=== PATIENT | male | born 1965 | race Caucasian/White ===

== ENCOUNTER 2020-03-29 15:50 | Emergency (ER) | payer OTHER ==
[2020-03-29 16:11] VITALS: BP 129/67; PULSE 87; TEMP 98.2; BMI 31.1
--- NOTE | 2020-03-29 16:26 | PDOC ---
Attending Attestation - Resident Resident Name: Lev Morfin - ED Attending Attestation I have performed the following: I have examined & evaluated the patient, The case was reviewed & discussed with the resident, I agree w/resident's findings & plan, Exceptions are as noted - HPI HPI: 54 yo M hx DM, panic attacks, depression, EtOh abuse, prior seizures presents with EtOH intox, requesting detox. He states he drank 12 beers yesterday, suspected he had a seizure when he woke up covered in vomit in the middle of the night. Drank multiple beers prior to arrival in ED, as well. C/o epigastric pain. - Physicial Exam PE: GENERAL: Awake, alert, and fully oriented, in no acute distress. +AOB HEAD: No signs of trauma EYES: PERRLA, EOMI, sclera anicteric, conjunctiva clear ENT: Auricles normal inspection, hearing grossly normal, nares patent, oropharynx clear without exudates. Moist mucosa. +Tongue fasciculations NECK: Normal ROM, supple, no lymphadenopathy, JVD, or masses LUNGS: Breath sounds equal, clear to auscultation bilaterally. No wheezes, and no crackles HEART: Regular rate and rhythm, normal S1 and S2, no murmurs, rubs or gallops ABDOMEN: Soft, nontender, normoactive bowel sounds. No guarding, no rebound. No masses EXTREMITIES: Normal range of motion, no edema. No clubbing or cyanosis. No cords, erythema, or tenderness. +Fine tremors to the hands B/L NEUROLOGICAL: Cranial nerves II through XII grossly intact. Normal speech. Motor and sensation intact SKIN: Warm, dry, normal turgor, no rashes or lesions noted. - Medical Decision Making Pt with signs of withdrawal on evaluation, despite still being intoxicated. D/w patient, he would like to go to detox. Will contact [facility] to see if space is available. Discharge - Discharge Information Problems reviewed: Yes Clinical Impression/Diagnosis: Alcohol intoxication Qualifiers: Complication of substance-induced condition: uncomplicated Qualified Code(s): F10.920 - Alcohol use, unspecified with intoxication, uncomplicated Condition: Stable Disposition: HOME - Follow up/Referral - Patient Discharge Instructions Patient Printed Discharge Instructions: DI for Alcohol Abuse - Post Discharge Activity
[2020-03-29] MEDS ORDERED: FAMOTIDINE 20 MG/50 ML IVPB 20 MG/50 ML MG IVPB ONE ×2 (16:46→17:05)
[2020-03-29] MEDS ORDERED: MAG HYDROX/AL HYDROX/SIMETH 30 ML UNIT-DOSE CUP PO ONE (16:46)
--- NOTE | 2020-03-29 16:52 | PDOC ---
History of Present Illness - General Chief Complaint: Alcohol intoxication Stated Complaint: INTOX Time Seen by Provider: 03/29/20 16:18 History Source: Patient Exam Limitations: No Limitations - History of Present Illness Initial Comments: 03/29/20 16:47 HPI: 54 yo M pmh DM, panic attacks, depression, ETOH use disorder previously c/b seizures presenting with ETOH intoxication requesting detox. Patient endorses drinking 12 beers yesterday, waking up between 2-3AM covered in vomit, assumed he must have had a seizure. He then drank 12 more beers before presenting to the ED requesting detox. He states that he has run out of clonazepam and his psychiatrist is out of the office. He then says he feels like he is about to have a panic attack here in the department - verbally deescalated with engagement in neuro exam. On [facility] database review, received 30 day supply of clonazepam on 03/17/2020 (0.5 mg) he reports that he takes 6 mg daily. Alert and oriented x3, denies any symptoms other than epigastric pain. Past History - Travel History Traveled outside of the country in the last 30 days: No Close contact w/someone who was outside of country & ill: No - Medical History Allergies/Adverse Reactions: Allergies Allergy/AdvReac Type Severity Reaction Status Date / Time No Known Allergies Allergy Verified 03/29/20 15:55 COPD: No Diabetes: Yes (type 2) - Psycho-Social/Smoking History Smoking History: Never smoked Have you smoked in the past 12 months: No Information on smoking cessation initiated: No - Substance Abuse Hx (Audit-C & DAST Scrn) How often the patient has a drink containing alcohol: 4 0r more times/wk Number of drinks the patient has on a typical day: 10 or more How often the patient has six or more drinks on one occasion: Daily or almost daily Score: In Men: 4 or > Positive; In Women: 3 or > Positive: 12 Screen Result (Pos requires Nsg. Audit-10AR): Positive In the last yr the pt used illegal drug/Rx for NonMed reason: No Score: Yes response is considered Positive: 0 Screen Result (Positive result requires Nsg. DAST-10): Negative Review of Systems - Review of Systems Able to Perform ROS?: Yes Is the patient limited Yakut proficient: Yes Constitutional: No: Chills, Diaphoresis, Fever, Weakness HEENTM: No: Recent change in vision, Nose Pain, Throat Pain Respiratory: No: Cough, Shortness of Breath, Wheezing Cardiac (ROS): No: Chest Pain, Edema, Irregular Heart Rate, Lightheadedness, Palpitations, Syncope, Chest Tightness ABD/GI: Yes: Vomiting (overnight, not nauseous or vomiting at present.). No: Constipated, Diarrhea, Nausea : No: Burning, Dysuria, Frequency Musculoskeletal: No: Muscle Pain, Muscle Weakness, Neck Pain Integumentary: No: Bruising, Pruritus, Rash Neurological: No: Headache, Numbness, Tingling, Weakness Psychiatric: Yes: Anxiety. No: Depression, Change in Appetite Endocrine: No: Increased Thirst, Increased Urine, Change in Weight Hematologic/Lymphatic: No: Anemia, Blood Clots, Easy Bleeding All Other Systems: Reviewed and Negative *Physical Exam - Vital Signs Last Vital Signs Temp Pulse Resp BP Pulse Ox 98.2 F 87 18 129/67 93 L 03/29/20 15:55 03/29/20 15:55 03/29/20 15:55 03/29/20 15:55 03/29/20 15:55 - Physical Exam 03/29/20 16:54 Vitals reviewed, AFVSS GEN: Well appearing, appears stated age, NAD, comfortable, smells of ETOH, keeping eyes closed. AAOx3. HEENT: NCAT, EOMI, PERRL. Sclera anicteric, non-injected. No facial asymmetry. Moist mucous membranes. Normal voice. Trachea midline. CV: RRR, S1/S2, no murmurs / rubs / gallops appreciated. LUNG: CTABL, normal work of breathing. No wheezes, rales, rhonchi. No cough. Speaking full sentences. GI: Soft, NTND, +BS, no guarding, no rebound. No masses. EXTREMITIES: 2+ distal pulses. No clubbing / cyanosis / edema. No gross deformity in any extremity. SKIN: Warm, dry, no rashes appreciated, non-jaundiced. PSYCH: Mood is anxious and affect labile. Cooperative and appropriate. NEURO: CN grossly intact. Moving all extremities well. Normal strength and sensation to light touch grossly. ED Treatment Course - LABORATORY CBC & Chemistry Diagram: 03/29/20 16:43 03/29/20 16:43 Medical Decision Making - Medical Decision Making 03/29/20 16:53 54 yo M pmh DM, panic attacks, depression, ETOH use disorder previously c/b seizures presenting with ETOH intoxication requesting detox. History notable for requesting clonazepam, recent rx filled per online records, recent ETOH use. Exam notable for stable vitals, comfortable resting in stretcher, epigastrium mildly TTP, neuro exam within normal limits - no gait assessment due to intox and fall risk. Will monitor for sobriety, ambulate, and connect with detox. Basic labs to evaluate for electrolyte disturbance or infectious markers. Concerning for acute intoxication, no reason to suspect any toxic alcohols - reporting 12 beers, gastritis, ACS unlikely given story, possible seeking component given request for higher dose rx that he recently filled a script for. - CBC, CMP, Mg, Coags - Pepcid - Maalox Dispo: Detox if agreeable when clinically sober 03/29/20 19:10 Ambulatory in the department Mild tremors in hands, feet, tongue Given 50 of Librium Requesting detox, agrees to going with security to [facility] Call placed to [facility] [phone], [id number], will call back, message left 03/29/20 19:40 Spoke with nursing forklift supervisor who recommended [phone] Again no answer, no answer at [phone] or [phone] Patient will be transferred to [facility] for intake via security. 03/29/20 20:19 Patient endorsed to [facility] [employer] SCENE SPECIALIST Stable, ambulatory, A&Ox3, early signs of withdrawal treated with Librium. Discharge - Discharge Information Problems reviewed: Yes Clinical Impression/Diagnosis: Alcohol intoxication Qualifiers: Complication of substance-induced condition: uncomplicated Qualified Code(s): F10.920 - Alcohol use, unspecified with intoxication, uncomplicated Condition: Stable Disposition: HOME - Admission No - Follow up/Referral - Patient Discharge Instructions Patient Printed Discharge Instructions: DI for Alcohol Abuse - Post Discharge Activity
[2020-03-29] MEDS ORDERED: MAG HYDROX/AL HYDROX/SIMETH 30 ML UNIT-DOSE CUP ONE (17:05)
[2020-03-29 17:24] LABS: BASO % 0.4 % (0-2.0); EOS % 0.8 % (0-4.5); HEMATOCRIT 38.7 % (35.4-49); LYMPH % 49.6 % (8-40); MCHC 33.5 g/dl (32.0-35.9); MEAN CELL VOLUME 89.4 fl (80-96); MEAN PLT VOLUME 6.3 fl (7.5-11.1); NEUT % 39.2 % (42.8-82.8); PLATELET COUNT 223 K/MM3 (134-434); RBC 4.32 M/mm3 (4.00-5.60); RDW 13.7 % (11.9-15.9); WHITE BLOOD COUNT 5.8 K/mm3 (4.0-10.0)
[2020-03-29 17:33] LABS: INR 0.93 (0.83-1.09)
[2020-03-29 17:36] LABS: ACTIVATED PTT 28.1 SECONDS (25.2-36.5)
[2020-03-29 17:40] LABS: ALBUMIN 2.9 g/dl (3.4-5.0); BILIRUBIN,TOTAL 0.1 mg/dL (0.2-1); BLOOD UREA NITROGEN 7.4 mg/dL (7-18); CALCIUM 7.9 mg/dL (8.5-10.1); CREATININE 0.7 mg/dL (0.55-1.3); POTASSIUM 3.6 mmol/L (3.5-5.1); TOT PROT 6.6 g/dl (6.4-8.2)
[2020-03-29] MEDS ORDERED: chlordiazePOXIDE HCL 25 MG CAPSULE PO ONE (18:37)
[2020-03-29] MEDS ORDERED: chlordiazePOXIDE HCL 25 MG CAPSULE ONE (18:51)
== END 2020-03-29 19:38 | disposition home or self-care (01) ==
LOC: JER 15:50
PROC: 3E033GC Introduction of Other Therapeutic Substance into Peripheral Vein, Percutaneous Approach (ICD-10-PCS; principal; 2020-03-29)
DX: F10.920 Alcohol use, unspecified with intoxication, uncomplicated (principal)
CPT/HCPCS: 36415; 80053; 83735; 85025; 85610; 85730; 96374; 99284-25

== ENCOUNTER 2020-03-29 20:46 | Inpatient (IN) | payer OTHER ==
--- NOTE | 2020-03-29 20:48 | HP ---
CIWA Score Nausea/Vomitin (vomiting x 1) Muscle Tremors: 5 Anxiety: 4-Mod. Anxious/Guarded Agitation: 4-Moderately Restless Paroxysmal Sweats: 3 Orientation: 0-Oriented Tacttile Disturbances: 0-None Auditory Disturbances: 0-None Visual Disturbances: 0-None Headache: 0-None Present CIWA-Ar Total Score: 18 - Admission Criteria [facility]ASAS Guidelines: Admission for Medically Managed Detox: Requires at least one of the followin. CIWA greater than 12 2. Seizures within the past 24 hours 3. Delirium tremens within the past 24 hours 4. Hallucinations within the past 24 hours 5. Acute intervention needed for co occurring medical disorder 6. Acute intervention needed for co occurring psychiatric disorder 7. Severe withdrawal that cannot be handled at a lower level of care (continued vomiting, continued diarrhea, abnormal vital signs) requiring intravenous medication and/or fluids 8. Admitting History and Physical - Smoking History Smoking history: Never smoked Have you smoked in the past 12 months: No Admission ROS [facility] Chief Complaint: Alcohol withdrawal symptoms. Allergies/Adverse Reactions: Allergies Allergy/AdvReac Type Severity Reaction Status Date / Time No Known Allergies Allergy Verified 03/29/20 15:55 History of Present Illness: 54 years old male with a long history of alcohol dependence is seeking admission to detox. He was referred from [place] emergency room and this is his first admission to [facility]. He reports that he drinks A case of beer (24 x 12oz. Budweizer) daily. He has medical history of DM type 2, GERD and psych. history of anxiety, panic attack, and depression. He reports suicide attempt this year (2019) and denies suicidal ideation at this time. He is unemployed, lives alone in an apartment and denies legal issues. 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 Last seizure was yesterday (03/28/2020). Patient reports that he is on clonazepam 2mg but his recent prescription indicates that his prescription is presently reduced to Clonazepam 0.5mg tablet which was ordered by Dr. Pb Betancur with 90 tablets for 30 days dispensed on 03/17/2020. Patient reports that he abused the medication, which is presently exhausted and that he requires more prescription. He is very anxious, paranoid and tremulous. Search Terms: eliot dawson, 1965Search Date: 03/29/2020 20:45:20 PM The Drug Utilization Report below displays all of the controlled substance prescriptions, if any, that your patient has filled in the last twelve months. The information displayed on this report is compiled from pharmacy submissions to the Department, and accurately reflects the information as submitted by the pharmacies. Patient Name: Eliot Garcia Date: 1965 Address: [address] [place] [id number]: Male Rx Written Rx Dispensed Drug Quantity Days Supply Prescriber Name Payment Method Dispenser 03/17/2020 03/17/2020 clonazepam 0.5 mg tablet 90 30 Gypsy Ambriz MD [facility] 01/07/2020 01/07/2020 clonazepam 2 mg tablet 90 30 Guy, Shel[facility] 12/13/2019 12/16/2019 clonazepam 2 mg tablet 90 30 Guy, [facility] 11/15/2019 11/20/2019 clonazepam 2 mg tablet 90 30 Guy, Shelly [facility] 11/13/2019 11/19/2019 clonazepam 0.5 mg tablet 21 7 Pepe Friedman MD [facility] 10/23/2019 10/26/2019 clonazepam 2 mg tablet 90 30 Guy, Shelly [facility] 09/04/2019 09/04/2019 clonazepam 2 mg tablet 90 30 Guy, Shelly [facility] 08/09/2019 08/10/2019 clonazepam 2 mg tablet 90 30 Guy, Shelly [facility] 07/12/2019 07/15/2019 clonazepam 2 mg tablet 90 30 Guy, Shelly [facility] 06/14/2019 06/19/2019 clonazepam 2 mg tablet 90 30 Guy, Shelly [facility] 05/17/2019 05/22/2019 clonazepam 2 mg tablet 90 30 Guy, Shelly [facility] 04/25/2019 04/25/2019 clonazepam 2 mg tablet 90 30 [facility] Insurance [facility] Exam Limitations: Intoxication - Ebola screening Have you traveled outside of the country in the last 21 days: No Have you had contact with anyone from an Ebola affected area: No Have you been sick,other than usual withdrawal symptoms: No Do you have a fever: No - Review of Systems Constitutional: Chills, Malaise, Night Sweats, Changes in sleep EENT: reports: No Symptoms Reported Respiratory: reports: No Symptoms reported Cardiac: reports: No Symptoms Reported GI: reports: Nausea, Poor Fluid Intake, Vomiting (x 1), Abdominal cramping : reports: No Symptoms Reported Musculoskeletal: reports: Back Pain Integumentary: reports: Dryness, Flushing Neuro: reports: Tremors Endocrine: reports: No Symptoms Reported Hematology: reports: No Symptoms Reported Psychiatric: reports: Orientated x3, Anxious, Depressed Other Systems: Reviewed and Negative Patient History - Patient Medical History Hx Anemia: No Hx Asthma: No Hx Chronic Obstructive Pulmonary Disease (COPD): No Hx Cancer: No Hx Cardiac Disorders: No Hx Congestive Heart Failure: No Hx Hypertension: No Hx Hypercholesterolemia: No HX Cerebrovascular Accident: No Hx Seizures: Yes (Alcohol related seizures) Hx Diabetes: Yes (type 2) Hx Gastrointestinal Disorders: Yes (GERD) Hx Liver Disease: No Hx Genitourinary Disorders: No Hx Sexually Transmitted Disorders: No Hx Renal Disease (ESRD): No Hx Thyroid Disease: No Hx Human Immunodeficiency Virus (HIV): No (Negative 2019) Hx Hepatitis C: No Hx Depression: Yes (+ Anxiety - Clonazepam) Hx Suicide Attempt: Yes (Attempt in 2019, denies suicidal ideation at this time) Hx Bipolar Disorder: No Hx Schizophrenia: No - Patient Surgical History Past Surgical History: No - PPD History Previous 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 History Hx Alcohol Use: Yes Hx Substance Use: No Substance Use Type: Alcohol Hx Substance Use Treatment: Yes - Substances abused Alcohol Substance route: Oral Frequency: Daily Amount used: A case of beer (24 x 12oz. Budweizer) Age of first use: 16 Date of last use: 03/29/20 Admission Physical Exam [facility] - Physical General Appearance: Yes: Intoxicated, Tremorous, Irritable, Sweating, Anxious HEENTM: Yes: Within Normal Limits Respiratory: Yes: Lungs Clear, Normal Breath Sounds, No Respiratory Distress Neck: Yes: Within Normal Limits Breast: Yes: Breast Exam Deferred Cardiology: Yes: Within Normal Limits Abdominal: Yes: Normal Bowel Sounds, Protuberent Genitourinary: Yes: Within Normal Limits Back: Yes: Normal Inspection Musculoskeletal: Yes: Within Normal Limits Extremities: Yes: Tremors Neurological: Yes: Within Normal Limits Integumentary: Yes: Within Normal Limits Lymphatic: Yes: Within Normal Limits - Diagnostic (1) Alcohol dependence with withdrawal, uncomplicated Current Visit: Yes Status: Acute (2) GERD (gastroesophageal reflux disease) Current Visit: Yes Status: Chronic (3) Alcohol related seizure Current Visit: Yes Status: Chronic (4) DM type 2 (diabetes mellitus, type 2) Current Visit: Yes Status: Chronic (5) Nicotine dependence Current Visit: Yes Status: Chronic Qualifiers: Nicotine product type: cigarettes Substance use status: uncomplicated Qualified Code(s): F17.210 - Nicotine dependence, cigarettes, uncomplicated Cleared for Admission [facility] - Detox or Rehab [facility] Level of Care: Medically Managed Detox Regimen/Protocol: Librium Claeared for Rehab Admission: No Inpatient Rehab Admission - Rehab Decision to Admit Inpatient rehab admission?: No
[2020-03-29 21:16] VITALS: BMI 43.4
[2020-03-29] MEDS ORDERED: MAGNESIUM HYDROX 2400MG/30ML ORAL SUSPENSION 30 ML CUP PO PRN (21:40)
[2020-03-29] MEDS ORDERED: chlordiazePOXIDE HCL 25 MG CAPSULE PO PRN (21:40)
[2020-03-29] MEDS ORDERED: MAG HYDROX/AL HYDROX/SIMETH 30 ML UNIT-DOSE CUP PO PRN (21:40)
[2020-03-29] MEDS ORDERED: MENTHOL/PHENOL 1 EACH UD MM PRN (21:40)
[2020-03-29] MEDS ORDERED: hydrOXYzine PAMOATE 25 MG CAPSULE (FP) PO PRN (21:40)
[2020-03-29] MEDS ORDERED: BISMUTH SUBSALICYLATE 524 MG/30 ML UD PO PRN (21:40)
[2020-03-29] MEDS ORDERED: METHOCARBAMOL 500 MG TABLET PO PRN (21:40)
[2020-03-29] MEDS ORDERED: NICOTINE POLACRILEX 2 MG GUM BUC PRN (21:40)
[2020-03-29] MEDS ORDERED: ACETAMINOPHEN 325 MG TABLET (FP) PO PRN ×2 (21:40)
[2020-03-29] MEDS ORDERED: IBUPROFEN 400 MG TABLET (FP) PO PRN (21:40)
[2020-03-29] MEDS ORDERED: MAGNESIUM CITRATE 300 ML BOTTLE PO PRN (21:40)
[2020-03-29] MEDS ORDERED: THIAMINE HCL 100 MG TABLET (FP) PO SCH (22:00)
[2020-03-29] MEDS ORDERED: MELATONIN 5 MG TABLETS PO SCH (22:00)
[2020-03-29] MEDS ORDERED: ONDANSETRON *ODT* 4 MG TABLET SL ONE (22:00)
[2020-03-29] MEDS: chlordiazePOXIDE HCL 25 MG CAPSULE PO SCH (22:23)
[2020-03-29 23:00] VITALS: BP 151/79; PULSE 90; TEMP 98.2
[2020-03-30] MEDS: metFORMIN HCL 500 MG TABLET (FP) PO SCH ×2 (00:25→08:31)
--- NOTE | 2020-03-30 00:47 | PN ---
[facility] Progress Note Note: Patient is very anxious, tremulous, paranoid and reports that he is afraid that he will harm himself. He reports that he is hearing voices commanding him to do things he does not want to do. Patient reported history of suicide attempt this year. He is being transferred to [place] emergency room for further evaluation. Endorsed to Mr Sheth. Vital Signs Temperature 98.2 F 03/29/20 22:22 Pulse Rate 90 03/29/20 22:22 Respiratory Rate 20 03/29/20 22:22 Blood Pressure 151/79 03/29/20 22:22 O2 Sat by Pulse Oximetry (%) 95 03/29/20 22:22 Laboratory Last Values POC Glucometer 225 UNITS (80-120) 03/29/20 23:12 Action: Transfer patient to [place] emergency room
[2020-03-30] MEDS: chlordiazePOXIDE HCL 25 MG CAPSULE PO SCH (08:31)
--- NOTE | 2020-03-30 09:20 | CONSULT ---
[facility] Psychiatric Consult - Data Date of interview: 03/30/20 Admission source: [facility] ED Identifying data: Mr Dozier is a 54 years old male, unemployed living alone referred from [facility] for inpatient detoxofication for alcohol Substance Abuse History: Reports history of alcohol use. Refer to addiction counselor's summary for further information Medical History: Significant for GERD, type 2 diabetes mellitus, PPD+ and alcohol related seizure. Psychiatric History: Patient is not available on the unit. According to SALES CENTER MANAGER note typed on 03/30/20 00:33, he was transferred to [facility] for evaluation of visual hallucinations and suicidal thoughts
[2020-03-30] MEDS ORDERED: NICOTINE 21 MG/24 HOURS TOPICAL PATCH TD SCH (10:00)
[2020-03-30] MEDS ORDERED: PRENATAL VITAMINS W/ FOLIC ACID TABLET (FP) PO SCH (10:00)
[2020-03-31] MEDS ORDERED: chlordiazePOXIDE HCL 25 MG CAPSULE PO SCH (05:00)
[2020-04-01] MEDS ORDERED: chlordiazePOXIDE HCL 10 MG CAPSULE PO PRN
[2020-04-01] MEDS ORDERED: chlordiazePOXIDE HCL 10 MG CAPSULE PO SCH (05:00)
[2020-04-02] MEDS ORDERED: chlordiazePOXIDE HCL 10 MG CAPSULE PO SCH (05:00)
[2020-04-03] MEDS ORDERED: chlordiazePOXIDE HCL 10 MG CAPSULE PO ONE (05:00)
== END 2020-03-30 08:34 | disposition short-term general hospital (02) | DRG 775 ==
LOC: YASAS 20:46 → Y6N 21:26
PROVIDERS: ADMIT Allergy & Immunology; ATTEND Allergy & Immunology
PROC: HZ2ZZZZ Detoxification Services for Substance Abuse Treatment (ICD-10-PCS; principal; 2020-03-29)
DX: F10.230 Alcohol dependence with withdrawal, uncomplicated (principal); F17.210 Nicotine dependence, cigarettes, uncomplicated; F32.9 Major depressive disorder, single episode, unspecified; F41.9 Anxiety disorder, unspecified; F41.0 Panic disorder [episodic paroxysmal anxiety]; K21.9 Gastro-esophageal reflux disease without esophagitis; G40.509 Epileptic seizures related to external causes, not intractable, without status epilepticus; R76.11 Nonspecific reaction to tuberculin skin test without active tuberculosis; Z91.5 Personal history of self-harm
CPT/HCPCS: 36415; 82962; 86780; Q0162; U0003